=== PATIENT | female | born 1965 ===

== ENCOUNTER 2025-09-24 08:20 | Outpatient (AMB) | payer OTHER, SELFPAY ==
--- OUTSIDE RECORDS SUMMARY | 2025-07-07 03:00 | XMS_ITS ---
Author Organization [facility] Address [address] [place] [address] Care Team Providers Care Pulmonology Technician Name Role Phone JOSE ZAYAS Primary Care Provider [phone] ALLERGIES No Known Allergies REASON FOR VISIT CPX MEDICATIONS Medication SIG (Take, Route, Frequency, Duration) Notes Start Date End Date Status tiZANidine HCl 4 MG take 2 tablet by oral route at bedtime Oral taking as directed Active Topiramate 50 MG 1 tablet Orally Once a day for 90 day(s) 07/07/2025 Active SUMAtriptan Succinate 50 MG take 2 tablet by oral route once with fluids as early as possible after the onset of a migraine attack;may repeat after 2 hours if headache returns, not to exceed 200mgin 24hrs Oral as directed for 30 day(s) Active SEROquel 300 MG 1 tablet at bedtime Orally Once a day Active ALPRAZolam 0.5 MG take 1 tablet by ORAL route 3 times every day as needed Oral taking as directed Active Percocet 5-325 MG take 1 tablet by ORAL route every 12 hours as needed Oral taking as directed Active SEROquel 50 MG 1 tablet at bedtime Orally Once a day Active Omeprazole 20 MG 1 capsule 1/2 to 1 hour before morning meal Orally Once a day Active SOCIAL HISTORY Tobacco Use: Social History Observation Description Date Details (start date - stop date) Former Smoker NA - NA Sex Assigned At : Social History Observation Description Sex Assigned At Unknown Smoking Question Answer Notes Are you a: former smoker How long has it been since you last smoked? 5-10 years PROBLEMS Problem Type ICD Code Onset Dates Problem Status W/U Status Risk SNOMED Code Notes Problem Spinal stenosis of lumbar region without neurogenic claudication (M48.061) Active confirmed 42847884 Problem Gastroesophageal reflux disease without esophagitis (K21.9) Active confirmed 251589953 Problem Migraine syndrome (G43.909) Active confirmed 64176848 Problem Persistent depressive disorder (F34.1) Active confirmed 0170064851 VITAL SIGNS Height 65.50 in 07/07/2025 Weight 189 lbs 07/07/2025 Blood pressure systolic 114 mm Hg 07/07/20 25 Blood pressure diastolic 70 mm Hg 025 BMI 30.97 kg/m2 07/07/2025 Encounters Encounter Location Date Provider Diagnosis [facility] [address] [place] [address] 07/07/2025 [facility] Encounter for genera l adult medical examination with abnormal findings Z00.01 ; Spinal stenosis of lumbar region without neurogenic claudication M48.061 ; Gastroesophageal reflux disease without esophagitis K21.9 ; Migraine syndrome G43.909 ; Persistent depressive disorder F34.1 ; Other fatigue R53.83 and Encounter for immunization Z23 ASSESSMENTS Encounter Date Diagnosis Assessment Notes Treatment Notes Treatment Clinical Notes Section Notes 07/07/2025 Encounter for general adult medical examination with abnormal findings (ICD-10 - Z00.01) 1. Routine healthcare maintenance: Mammogram was done in November. Will send for colonoscopy report to guide when next due. She will contact [employer]. We will update fasting blood work. Flu shot given today 2. Lumbar spinal stenosis: Continues to follow closely with physiatry. 3. Gastroesophageal reflux: Stable with omeprazole 4. Migraines: With increased frequency we will double topiramate 50 mg and I will renew Imitrex 5. Depression: Following closely with psychiatry. 07/07/2025 Spinal stenosis of lumbar region without neurogenic claudication (ICD-10 - M48.061) 1. Routine healthcare maintenance: Mammogram was done in November. Will send for colonoscopy report to guide when next due. She will contact [employer]. We will update fasting blood work. Flu shot given today 2. Lumbar spinal stenosis: Continues to follow closely with physiatry. 3. Gastroesophageal reflux: Stable with omeprazole 4. Migraines: With increased frequency we will double topiramate 50 mg and I will renew Imitrex 5. Depression: Following closely with psychiatry. 07/07/2025 Gastroesophageal reflux disease without esophagitis (ICD-10 - K21.9) 1. Routine healthcare maintenance: Mammogram was done in November. Will send for colonoscopy report to guide when next due. She will contact [employer]. We will update fasting blood work. Flu shot given today 2. Lumbar spinal stenosis: Continues to follow closely with physiatry. 3. Gastroesophageal reflux: Stable with omeprazole 4. Migraines: With increased frequency we will double topiramate 50 mg and I will renew Imitrex 5. Depression: Following closely with psychiatry. 07/07/2025 Migraine syndrome (ICD-10 - G43.909) 1. Routine healthcare maintenance: Mammogram was done in November. Will send for colonoscopy report to guide when next due. She will contact [employer]. We will update fasting blood work. Flu shot given today 2. Lumbar spinal stenosis: Continues to follow closely with physiatry. 3. Gastroesophageal reflux: Stable with omeprazole 4. Migraines: With increased frequency we will double topiramate 50 mg and I will renew Imitrex 5. Depression: Following closely with psychiatry. 07/07/2025 Persistent depressive disorder (ICD-10 - F34.1) 1. Routine healthcare maintenance: Mammogram was done in November. Will send for colonoscopy report to guide when next due. She will contact [employer]. We will update fasting blood work. Flu shot given today 2. Lumbar spinal stenosis: Continues to follow closely with physiatry. 3. Gastroesophageal reflux: Stable with omeprazole 4. Migraines: With increased frequency we will double topiramate 50 mg and I will renew Imitrex 5. Depression: Following closely with psychiatry. 07/07/2025 Other fatigue (ICD-10 - R53.83) 1. Routine healthcare maintenance: Mammogram was done in November. Will send for colonoscopy report to guide when next due. She will contact [employer]. We will update fasting blood work. Flu shot given today 2. Lumbar spinal stenosis: Continues to follow closely with physiatry. 3. Gastroesophageal reflux: Stable with omeprazole 4. Migraines: With increased frequency we will double topiramate 50 mg and I will renew Imitrex 5. Depression: Following closely with psychiatry. 07/07/2025 Encounter for immunization (ICD-10 - Z23) VIS sheet provided to patient influenza vaccine administered patient counseled 1. Routine healthcare maintenance: Mammogram was done in November. Will send for colonoscopy report to guide when next due. She will contact [employer]. We will update fasting blood work. Flu shot given today 2. Lumbar spinal stenosis: Continues to follow closely with physiatry. 3. Gastroesophageal reflux: Stable with omeprazole 4. Migraines: With increased frequency we will double topiramate 50 mg and I will renew Imitrex 5. Depression: Following closely with psychiatry. PLAN OF TREATMENT Medication Medication Name Sig Start Date Stop Date Notes tiZANidine HCl 4 MG take 2 tablet by ora l route at bedtime Oral taking as directed Topiramate 25 MG take 1 tablet by ORA L route bid Oral taking as directed Topiramate 50 MG 1 tablet Orally Once a day for 90 day(s) 07/07/2025 SUMAtriptan Succinate 50 MG take 2 tablet by oral route once with fluids as early as possible after the onset of a migraine attack;may repeat after 2 hours if headache returns, not to exceed 200mgin 24hrs Oral as directed for 30 day(s) SEROquel 300 MG 1 tablet at bedtime Orally Once a day ALPRAZolam 0.5 MG take 1 tablet by ORA L route 3 times every day as needed Oral taking as directed SEROquel 50 MG 1 tablet at bedtime Orally Once a day Omeprazole 20 MG 1 capsule 1/2 to 1 hour before morning meal Orally Once a day Treatment Notes Assessment Notes Encounter for immunization VIS sheet pro vided to patient influenza vaccine administered patient counseled Progress Notes * Examination Category Sub-Category Detail Notes Category Not es General Examination HEENT: PERRLA, EOMI bilatera lly, nose clear Neck: supple, no lymphaden opathy, no thyromegaly Heart: RSR, normal S1S2 Lungs: clear to auscultatio n Abdomen: soft, non tender/non distended, no rebound tenderness, no guarding or rigidity Extremities: no edema General Appearance no apparent distress , pleasant Skin: normal, no rash Neuro alert and oriented x 3, gait normal Oral cavity: no lesions Peripheral pulses: Bilateral radial pre sent, Bilateral posterior tibial present, BilateralCarotids present No Bruits Back: no CVA tenderness, s traight leg raise normal, , no spinal tenderness Lymphatics No nodes in neck Psych: oriented X 3, affect normal History and Physical Notes * HPI (History of Present Illness) Category Sub-Category Detail Notes Category Not es Depression Screening PHQ-2 (2015 Edition) Little interest or pleasure in doing things?: Not at all Feeling down, depressed, or hopeless?: N ot at all Total Score: 0
--- OUTSIDE RECORDS SUMMARY | 2025-07-07 03:08 | XMS_ITS ---
Author Organization [facility] Address [address] [place] [address] Care Team Providers Care Physician Assistant Surgery Name Role Phone JOSE ZAYAS Primary Care Provider REASON FOR VISIT [place] Encounters Encounter Location Date Provider Diagnosis [facility] [address] [place] [address] 07/07/2025 JOSE ZAYAS PLAN OF TREATMENT No Information
--- OUTSIDE RECORDS SUMMARY | 2025-07-07 08:41 | XMS_ITS ---
Author Organization [facility] Address [address] [place] [address] Care Team Providers Care Photogrammetric Compilation Specialist Name Role Phone JOSE ZAYAS Primary Care Provider REASON FOR VISIT employer cpx form Encounters Encounter Location Date Provider Diagnosis [facility] [address] [place] [address] 07/07/2025 JOSE ZAYAS PLAN OF TREATMENT No Information
--- OUTSIDE RECORDS SUMMARY | 2025-07-08 01:19 | XMS_ITS ---
Author Organization [facility] Address [address] [place] [address] Care Team Providers Care Children'S Service Supervisor Name Role Phone JOSE ZAYAS Primary Care Provider REASON FOR VISIT add on Encounters Encounter Location Date Provider Diagnosis [facility] [address] [place] [address] 07/08/2025 JOSE ZAYAS Hyperglycemia R73.9 ASSESSMENTS Encounter Date Diagnosis Assessment Notes Treatment Notes Treatment Clinical Notes Section Notes 07/08/2025 Hyperglycemia (ICD-10 - R73.9) PLAN OF TREATMENT Future Test Test Name Order Date Hemoglobin [id number] 07/08/2025
--- OUTSIDE RECORDS SUMMARY | 2025-07-09 15:55 | XMS_ITS ---
Author Organization [facility] Address [address] [place] [address] Care Team Providers Care Customer Sales Specialist Name Role Phone JOSE ZAYAS Primary Care Provider REASON FOR VISIT labs Encounters Encounter Location Date Provider Diagnosis [facility] [address] [place] [address] 07/09/2025 JOSE ZAYAS PLAN OF TREATMENT No Information
--- OUTSIDE RECORDS SUMMARY | 2025-07-10 05:10 | XMS_ITS ---
Author Organization [facility] Address [address] [place] [address] Care Team Providers Care Tie Layer Name Role Phone JOSE ZAYAS Primary Care Provider [phone] REASON FOR VISIT inquiring about Zepbound MEDICATIONS Medication SIG (Take, Route, Fr equency, Duration) Notes Start Date End Date Status Zepbound 2.5 MG/0.5ML as directed Subcut aneous every 7 days for 28 days 07/10/2025 Active PROBLEMS Problem Type ICD Code Onset Dates Problem Status W/U Status Risk SNOMED Code Notes Problem Other obesity due to excess calories (E66.09) Active confirmed 835080335 Problem Body mass index [BMI] 30.0-30.9, adult (Z68.30) Active confirmed 274966184 Problem Obesity, class 1 (E66.811) Active confirmed 932604863 Encounters Encounter Location Date Provider Diagnosis [facility] [address] [place] [address] 07/10/2025 JOSE ZAYAS Other obesity due to excess calories E66.09 ; Body mass index [BMI] 30.0-30.9, adult Z68.30 and Obesity, class 1 E66.811 ASSESSMENTS Encounter Date Diagnosis Assessment Notes Treatment Notes Treatment Clinical Notes Section Notes 07/10/2025 Other obesity due to excess calories (ICD-10 - E66.09) 07/10/2025 Body mass index [BMI] 30.0-30.9, adult (ICD-10 - Z68.30) 07/10/2025 Obesity, class 1 (ICD-10 - E66.811) PLAN OF TREATMENT Medication Medication Name Sig Start Date Stop Date Notes Zepbound 2.5 MG/0.5ML as directed Subcut aneous every 7 days for 28 days 07/10/2025
--- OUTSIDE RECORDS SUMMARY | 2025-07-10 07:46 | XMS_ITS ---
Author Organization [facility] Address [address] [place] [address] Care Team Providers Care Rewards Consultant Name Role Phone JOSE ZAYAS Primary Care Provider REASON FOR VISIT Zepbound Encounters Encounter Location Date Provider Diagnosis [facility] [address] [place] [address] 07/10/2025 JOSE ZAYAS PLAN OF TREATMENT No Information
--- OUTSIDE RECORDS SUMMARY | 2025-08-12 11:34 | XMS_ITS ---
Author Organization [facility] Address [address] [place] [address] Care Team Providers Care [employer] Supervisor Name Role Phone JOSE ZAYAS Primary Care Provider REASON FOR VISIT (W,AF-08/12/25) PA Zepbound Encounters Encounter Location Date Provider Diagnosis [facility] [address] [place] [address] 08/12/2025 JOSE ZAYAS PLAN OF TREATMENT No Information
--- NOTE | 2025-09-24 08:19 | A.PHYSOV ---
Vital Signs 09/24/25 08:30 Height 5 ft 6 in Weight 179 lb BMI 28.9 Intake Visit Reasons: 3M Intake Note: Patient is a 60 year old female in office today in office today for her 3 month medication management visit. Sign Poster Required: No Allergies No Known Allergies Allergy (Verified 09/24/25 08:20) HPI Comments Details: History of Present Illness The patient is a 60 year old female presenting for a follow-up visit for chronic pain management and evaluation of an acute injury. She has chronic pain, primarily in her lower back, and is on a contract for oxycodone, which she uses sparingly for severe pain. She also takes methocarbamol and cyclobenzaprine interchangeably for muscle spasms. Lately methocarbamol has been primarily utilized. 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 Past interventions include multiple lumbar injections, most recently an L4-L5 interlaminar procedure and prior bilateral L4 transforaminal procedures. She has also had good results with greater occipital nerve blocks for headaches. A trial of turmeric supplementation was not helpful. She continues to exercise daily. On Sunday, September 21, 2025, the patient fell down her cellar stairs after slipping on wet steps, landing on her tailbone and left side. This resulted in acute pain in that area. She has not had an X-ray since the fall. Pain Description - Chronic Pain: Located in the lower back, with a reported 60-70% improvement with current medications. - Acute Pain: Localized pain in the tailbone and left buttock area following a fall. - Associated Symptoms: The patient reports she is doing a lot of shifting due to the acute pain, but denies any pain radiating down her leg. Results - Procedures: Patient reports good reaction to prior greater occipital nerve blocks for headaches. - Procedures: History of multiple lumbar injections, with the most recent being an L4-L5 interlaminar procedure and prior bilateral L4 transforaminal procedures. [facility] Medical History (Updated 09/24/25 @ 08:38 by Bartolo Sanders DO) Low back pain Sacroiliac inflammation Sacroiliac dysfunction Surgical History H/O tubal ligation (Unknown) History of knee replacement (Unknown) Social History Household Members: Spouse Alcohol intake: current Alcohol intake frequency: does not drink Patient Tobacco Use Status: Former Tobacco user Current occupational status: employed Review of Systems Narrative Review of Systems - Constitutional: Denies fever or chills. - Musculoskeletal: Reports localized pain in the left tailbone area after a fall. - Neurological: Denies radicular pain shooting down the leg. Physical Exam Exam Exam: Physical Exam - Back: Palpation reveals tenderness over the left sacrum/coccyx region. - Back: No tenderness noted with palpation on the right. Neurological examination was nonfocal. Lumbar extension was restricted. Left SI provocative maneuvers were positive including fabere, Martha and SI compression test. No pain with internal and external rotation of the either hip. Patient demonstrated no upper motor neuron signs. Vital Signs: BMI result Body Mass Index 28.9 Assessment & Plan Assessment & Plan (1) Sacroiliac dysfunction: Code(s): M53.3 - Sacrococcygeal disorders, not elsewhere classified Category: Medical (2) Sacroiliac inflammation: Code(s): M46.1 - Sacroiliitis, not elsewhere classified Category: Medical (3) Low back pain: Code(s): M54.50 - Low back pain, unspecified Category: Medical (4) Low back pain: Code(s): M54.50 - Low back pain, unspecified Category: Medical Plan Pain Management - Analgesia: Medications provide 60-70% reduction in chronic pain. 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 - Aberrant Drug Related Behaviors: The patient is on a contract for oxycodone and reports taking it sparingly as needed for severe pain only. Plan Patient was informed and verbally consented to the use of an ambient scribe for clinic note documentation during this visit. 1. Acute Pain Due To Fall The patient experienced a fall resulting in acute pain in the tailbone area, with tenderness on examination. There is a possibility of a severe bruise or a sacral insufficiency fracture. An X-ray of the pelvis and low back will be ordered to assess for a visible fracture. If the pain does not improve in 4 to 6 weeks, an MRI will be the next step. A prednisone taper was offered for inflammation, but the patient declined. 2. Chronic Low Back Pain The patient will continue her current medication regimen for chronic pain, which includes oxycodone taken sparingly, methocarbamol, and cyclobenzaprine. Medication refills will be provided as needed. Discussion Notes I discussed with the patient that her new pain is from her fall and could be a severe bruise or a sacral insufficiency fracture, which is typically non-operative but can be painful for 4-6 weeks. I recommended an X-ray of her pelvis and low back to evaluate for a fracture and explained that an MRI would be the next step if her symptoms do not improve. I offered a prednisone taper to reduce inflammation, which she declined. I provided a prescription for the X-ray that she can take to a facility of her choosing. Patient Instructions - Please get an X-ray of your pelvis and low back in the next couple of days to check for a fracture from your recent fall. - If your new pain from the fall does not get better in 4 to 6 weeks, we will need to consider getting an MRI for a closer look. - Continue taking your current pain medications as prescribed. Orders: Orders XR pelvis 1-2V Today M46.1 - Sacroiliitis, not elsewhere classified, M53.3 - Sacrococcygeal disorders, not elsewhere classified, M54.50 - Low back pain, unspecified XR lumbar spine 4V min Today M46.1 - Sacroiliitis, not elsewhere classified, M53.3 - Sacrococcygeal disorders, not elsewhere classified, M54.50 - Low back pain, unspecified Medications: New oxycodone-acetaminophen 5-325 mg Partial fill upon request 1 tab PO BID PRN 56 tabs 0RF pain 28 days M54.50 - Low back pain, unspecified Coding Level of Care Code Est Pt Level 4 (31813) Complex visit Add On G2211 Diagnoses Sacroiliac dysfunction M53.3 Sacroiliac inflammation M46.1 Low back pain M54.50
[2025-09-24 08:30] VITALS: BMI 28.9
--- OUTSIDE RECORDS SUMMARY | 2025-09-24 08:37 | XMS_ITS | Clinical Summary ---
Author Organization [address] Address [address] [place] [phone] Phone Care Team Providers Care Health Information Specialist Name Role Phone Umesh Regan MD Primary Care Provider [phone] Surgical History Surgery Date Site/Laterality Comments TUBAL LIGATION PROCEDURE: HISTORICAL TUBAL LIGATION KNEE SURGERY PROCEDURE: HISTORICAL KNEE SURGERY Medical History Medical History Date Comments Herniated disc, cervical DX:Jeni iated disc, cervical Lumbar herniated disc DX:Lumbar herniated disc Family History Medical History Relation Name Comments Colon cancer Aunt maternal Other cancer Brother 1 testicular Other cancer Father cancer in jaw b one Cervical cancer Mother CIS, had hys t Diabetes Mother Melanoma Mother Ovarian cancer Mother uncertain, ma y have been benign, no chemotherapy Breast cancer Neg Hx Pancreatic cancer Neg Hx Prostate cancer Neg Hx Uterine cancer Neg Hx Relation Name Status Comments Aunt maternal Brother 1 Brother 2 Alive Father Mother Social History Tobacco Use Types Packs/Day Years Used Date Smoking Tobacco: Former Cigarettes 1.5 22.7 0 10/22/1991 - 06/19/2014 Smokeless Tobacco: Never Alcohol Use Standard Drinks/Week Comments No 0 (1 standard drink = 0.6 oz pur e alcohol) Comments Unknown Sex and Gender Information Value Date Recorded Sex Assigned at Not on file Legal Sex Female 6:08 PM EST Gender Identity Not on file Sexual Orientation Not on file Obstetrics History Para Term AB IAB SAB Ectopic Multiple Livin g Live Births 2 2 2 2 Date Outcome GA Total Labor Labor/2nd/3rd Weight Sex Type Anes PTL Treva A1 A5 Name Clin Term Term Plan of Treatment Health Maintenance Due Date Last Done Comments Colorectal Cancer Screening: Colonoscopy 1966 DTaP,Tdap,and Td Vaccines (1 - Tdap) 1985 Hepatitis B Vaccines (1 of 3 - 19+ 3-dose series) 1985 Pneumococcal Vaccine: 50+ Years (1 of 1 - PCV) 2016 Cervical Cancer Screening: Pap Smear 02/11/2022 02/11/2019 HIV Screening 09/30/2022 Hepatitis C Screening 09/30/2022 Lung Cancer Screening (Low Dose CT) 09/30/2022 Social Influencers of Health Screening 09/30/2022 Depression Screening 10/22/2024 COVID-19 Vaccine ( season) 2025 08/09/2022, 11/22/2021, 01/20/2021, Additional history exists Influenza Vaccine (#1) 2025 4, 09/21/2022, 08/15/2021, Additional history exists Breast Cancer Screening 12/16/2026 12/16/19, 08/09/2023, 08/03/2022, Additional history exists RSV Immunization Adult Patients (1 - 1-dose 75+ series) 2041 Zoster Vaccines Completed 02/08/2022, 10/07/2021 HIB Vaccines Aged Out No longer eligi ble based on patient's age to complete this topic HPV Vaccines Aged Out No longer eligi ble based on patient's age to complete this topic Hepatitis A Vaccines Aged Out No long er eligible based on patient's age to complete this topic IPV Vaccines Aged Out No longer eligi ble based on patient's age to complete this topic MMR Vaccines Aged Out No longer eligi ble based on patient's age to complete this topic Meningococcal ACWY Vaccine Aged Out N o longer eligible based on patient's age to complete this topic Meningococcal B Vaccine Aged Out No l onger eligible based on patient's age to complete this topic RSV Immunization Patients Under 20 months Aged Out No longer eligible based on patient's age to complete this topic Varicella Vaccines Aged Out No longer eligible based on patient's age to complete this topic Procedures Procedure Name Priority Date/Time Associated Diagnosis Comments MG MAMMO DIGITAL SCREENING W AG BILAT Routine 12/16/2024 4:31 PM EST Encounter for screening mammogram for malignant neoplasm of breast PAP SMEAR Routine 02/11/2019 from Last 3 Months or Most Recently Relevant to Health Maintenance Results * MG Mammo Digital Screening w Ag bilat (12/16/2024 4:31 PM EST) Anatomical Region Laterality Modality Breast Bilateral Mammography 12/17/2024 2:40 PM EST Impressions 12/17/2024 2:45 PM EST BILATERAL BREASTS: Negative, no evidence of malignancy. Normal interval follow- up is recommended in 12 months. BREAST DENSITY: C - The breasts are heterogeneously dense which may obscure small masses. BI-RADS CATEGORY: 1 - NEGATIVE RECOMMENDATION: Screening bilateral mammogram is recommended in 1 year. Mammo Location: [facility], [address] [place] [address], [id number], . -------- FINAL REPORT -------- Dictated By: Luis Enrique Henning Dictated Date: 12/17/2024 14:40 ET Assigned Physician: Luis Enrique Henning Reviewed and Electronically Signed By: Luis Enrique Henning Signed Date: 12/17/2024 14:45 ET Workstation ID: [id number] Transcribed By: Self Edit Transcribed Date: 12/17/2024 14:42 ET Narrative 12/17/2024 2:45 PM EST STUDY: Bilateral screening mammography with tomosynthesis and CAD TECHNIQUE: Bilateral full-field digital screening mammography is obtained and read in conjunction with computer-aided detection. Tomosynthesis as well as 2-D C view imaging were obtained. COMPARISON: Comparison made to multiple prior, most recent August 09, 2023, and most remote February 04, 2015. BILATERAL BREASTS: No significant masses, suspicious calcifications or other abnormalities are seen in either breast. Procedure Note Luis Enrique Henning MD - 12/17/2024 STUDY: Bilateral screening mammography with tomosynthesis and CAD TECHNIQUE: Bilateral full-field digital screening mammography is obtainedand read in conjunction with computer-aided detection. Tomosynthesis aswell as 2-D C view imaging were obtained. COMPARISON: Comparison made to multiple prior, most recent July, and most remote February 04, 2015. BILATERAL BREASTS: No significant masses, suspicious calcifications orother abnormalities are seen in either breast. IMPRESSION: BILATERAL BREASTS: Negative, no evidence of malignancy. Normal intervalfollow-up is recommended in 12 months. BREAST DENSITY: C - The breasts are heterogeneously dense which mayobscure small masses. BI-RADS CATEGORY: 1 - NEGATIVE RECOMMENDATION: Screening bilateral mammogram is recommended in 1 year. Mammo Location: [facility], [address] [place] [address], [id number], . -------- FINAL REPORT -------- Dictated By: Luis Enrique Henning Dictated Date: 12/17/2024 14:40 ET Assigned Physician: Luis Enrique Henning Reviewed and Electronically Signed By: Luis Enrique Henning Signed Date: 12/17/2024 14:45 ET Workstation ID: [id number] Transcribed By: Self Edit Transcribed Date: 12/17/2024 14:42 ET Umesh Regan MD IMG BI PROCEDURES Final Result * Pap smear (02/11/2019) 02/11/2019 Narrative HISTORICAL TESTING LAB RESULTING AGENCY - 02/14/2019 2:06 PM EDT [id number] THINPREP PAP, IMAGED: NEGATIVE FOR SQUAMOUS INTRAEPITHELIAL LESION AND MALIGNANCY . ATROPHY. DALTON LO , JACINTO(ASCP) (CASE ELECTRONICALLY SIGNED 02 14 2019) RESULT OF APTIMA HIGH RISK HPV ASSAY: HIGH RISK HPV: NEGATIVE (SEROTYPES 16,18,31,33,35,39,45,51,52,56,58,59,66,68) COMPLETED ON 2019-02-13 ADEQUACY: SATISFACTORY ENDOCERVICAL/TRANSFORMATION ZONE COMPONENT PRESENT. SOURCE: THINPREP PAP HPV ANY DX: REFLEX 16 AND 18, CERVICAL, IMAGED CLINICAL INFORMATION: HPV ANY DIAGNOSIS. Z12.4, MENOPAUSE, PAP HX NEGATIVE us Marisela Rodriguez MD LAB CYTOLOGY ORDERABLES Fin al Result HISTORICAL TESTING LAB RESULTING AGENCY from Last 3 Months or Most Recently Relevant to Health Maintenance Insurance [facility] Care Teams Health Information Specialist Relationship Specialty Start Date End Date Umesh Regan MD PCP - General 05/15/01
--- OUTSIDE RECORDS SUMMARY | 2025-09-24 08:38 | XMS_ITS ---
Author Name [facility] Organization Unknown Care Team Organization Name Specialty Phone Email Start Date End golden [facility] Primary Care 03/24/2024
--- OUTSIDE RECORDS SUMMARY | 2025-09-24 08:38 | XMS_ITS | Patient Health Record ---
Author Organization [facility] Address [address] [place] [address] Care Team Providers Care Immunology Specialist Name Role Phone CHANAJOSE Primary Care Provider [phone] ALLERGIES No Known Allergies REASON FOR REFERRAL No Information MEDICATIONS Medication SIG (Take, Route, Frequency, Duration) Notes Start Date End Date Status SEROquel 300 MG 1 tablet at bedtime Orally Once a day Active tiZANidine HCl 4 MG take 2 tablet by ora l route at bedtime Oral taking as directed Active Zepbound 2.5 MG/0.5ML as directed Subcutaneous every 7 days for 28 days 07/10/2025 Active ALPRAZolam 0.5 MG take 1 tablet by ORA L route 3 times every day as needed Oral taking as directed Active Topiramate 50 MG 1 tablet Orally Once a day for 90 day(s) 07/07/2025 Active Percocet 5-325 MG take 1 tablet by ORA L route every 12 hours as needed Oral taking as directed Active SEROquel 50 MG 1 tablet at bedtime Orally Once a day Active Omeprazole 20 MG 1 capsule 1/2 to 1 hour before morning meal Orally Once a day Active SUMAtriptan Succinate 50 MG take 2 tablet by oral route once with fluids as early as possible after the onset of a migraine attack;may repeat after 2 hours if headache returns, not to exceed 200mgin 24hrs Oral as directed for 30 day(s) Active IMMUNIZATIONS Vaccine Route Administration Date Status Comme nts Td (Tetanus Diphtheria) Unknown 06/03/2003 Administered Td (Tetanus Diphtheria) IM Intramuscular 12/11/2018 Admini stered Pfizer COVID-19,mRNA, LNP-S, PF, 30mcg/0.3mL dose Unknown 01/13/2021 Administered Pfizer COVID-19,mRNA, LNP-S, PF, 30mcg/0.3mL dose Unknown 02/03/2021 Administered SOCIAL HISTORY Tobacco Use: Social History Observation [...] due to excess calories (E66.09) Active confirmed 821390869 Problem Gastroesophageal reflux disease without esophagitis (K21.9) Active confirmed 295448803 Problem Spinal stenosis of lumbar region without neurogenic claudication (M48.061) Active confirmed 74455902 Problem Body mass index [BMI] 30.0-30.9, adult (Z68.30) Active confirmed 873499192 Problem Persistent depressive disorder (F34.1) Active confirmed 9418859264 Problem Migraine syndrome (G43.909) Active confirmed 06276640 Problem Obesity, class 1 (E66.811) Active confirmed 391358503 VITAL SIGNS Blood pressure diastolic 70 mm Hg 07/07/2025 Height 65.50 in 07/07/2025 Blood pressure systolic 114 mm Hg 07/07/2025 Weight 189 lbs 07/07/2025 BMI 30.97 kg/m2 07/07/2025 Encounters Encounter Location Date Provider Diagnosis [address] [address] 07/06/2025 [place] [id number] 07/07/2025 [facility] Encounter for genera l adult medical examination with abnormal findings Z00.01 ; Spinal stenosis of lumbar region without neurogenic claudication M48.061 ; Gastroesophageal reflux disease without esophagitis K21.9 ; Migraine syndrome G43.909 ; Persistent depressive disorder F34.1 ; Other fatigue R53.83 and Encounter for immunization Z23 [address] [address] 07/07/2025 [place] [id number] 07/07/2025 [facility] Encounter for genera l adult medical examination with abnormal findings Z00.[address] [phone] 07/07/[address] [address] 07/08/2025 [facility] Hyperglycemia R73.[address] [address] 07/09/[address] [address] 07/10/2025 [facility] Other obesity due to excess calories E66.09 ; Body mass index [BMI] 30.0-30.9, adult Z68.30 and Obesity, class [address] [address] 07/10/[address] [address] 07/12/[address] [address] 08/12/2025 [facility] ASSESSMENTS Encounter Date Diagnosis Assessment Notes Treatment Notes Treatment Clinical Notes Section Notes 07/10/2025 Other obesity due to excess calories (ICD-10 - E66.09) 07/08/2025 Hyperglycemia (ICD-10 - R73.9) 07/07/2025 Encounter for general adult medical examination with abnormal findings (ICD-10 - Z00.01) 07/07/2025 Spinal stenosis of lumbar region without neurogenic claudication (ICD-10 - M48.061) 1. Routine healthcare maintenance: Mammogram was done in November. Will send for colonoscopy report to guide when next due. She will contact [employer]GER. We will update fasting blood work. Flu shot given today 2. Lumbar spinal stenosis: Continues to follow closely with physiatry. 3. Gastroesophageal reflux: Stable with omeprazole 4. Migraines: With increased frequency we will double topiramate 50 mg and I will renew Imitrex 5. Depression: Following closely with psychiatry. 07/07/2025 Encounter for general adult medical examination with abnormal findings (ICD-10 - Z00.01) 1. Routine healthcare maintenance: Mammogram was done in November. Will send for colonoscopy report to guide when next due. She will contact NETWORK PROGRAM MANAGER. We will update fasting blood work. Flu [...] guide when next due. She will contact NETWORK PROGRAM MANAGER. We will update fasting blood work. Flu shot given today 2. Lumbar spinal stenosis: Continues to follow closely with physiatry. 3. Gastroesophageal reflux: Stable with omeprazole 4. Migraines: With increased frequency we will double topiramate 50 mg and I will renew Imitrex 5. Depression: Following closely with psychiatry. 07/10/2025 Body mass index [BMI] 30.0-30.9, adult (ICD-10 - Z68.30) 07/07/2025 Migraine syndrome (ICD-10 - G43.909) 1. Routine healthcare maintenance: Mammogram was done in November. Will send for colonoscopy report to guide when next due. She will contact [employer]WORK PROGRAM MANAGER. We will update fasting blood work. Flu shot given today 2. Lumbar spinal stenosis: Continues to follow closely with physiatry. 3. Gastroesophageal reflux: Stable with omeprazole 4. Migraines: With increased frequency we will double topiramate 50 mg and I will renew Imitrex 5. Depression: Following closely with psychiatry. 07/10/2025 Obesity, class 1 (ICD-10 - E66.811) 07/07/2025 Persistent depressive disorder (ICD-10 - F34.1) 1. Routine healthcare maintenance: Mammogram was done in November. Will send for colonoscopy report to guide when next due. She will contact NETWORK PROGRAM MANAGER. We will update fasting blood work. Flu [...] guide when next due. She will contact NETWORK PROGRAM MANAGER. We will update fasting blood work. Flu [...] guide when next due. She will contact NETWORK PROGRAM MANAGER. We will update fasting blood work. Flu shot given today 2. Lumbar spinal stenosis: Continues to follow closely with physiatry. 3. Gastroesophageal reflux: Stable with omeprazole 4. Migraines: With increased frequency we will double topiramate 50 mg and I will renew Imitrex 5. Depression: Following closely with psychiatry. PLAN OF TREATMENT Future Test Test Name Order Date Hemoglobin [id number] 07/08/2025 Insurance Providers Payer Name Payer Address Payer Phone Subscriber Number Group Number Insured Name Patient Relationship to Insured Coverage Start Date Coverage End Date [employer] [address] [place] H[place]KINS [phone] [id number] WESTLEY BRUCE Self - patient is the insured MEDICAL (GENERAL) HISTORY Medical History History ICD Code Disease : Cervical DDD, Disease : IBS, Disease : Lumbar DDD, Disease : migraines, Problems: Gastroesophageal r eflux disease, Added Date: 07/11/2015, Onset Date: 10/21/2009:Active Problems: Malaise and fatigu e, Added Date: 07/11/2015, Onset Date: 10/21/2009:Active Problems: Migraine without a ura, Added Date: 07/11/2015, Onset Date: 10/21/2009:Active Problems: Spinal stenosis of lumbar region, Added Date: 07/11/2015, Onset Date: 10/21/2009:Active Surgical History Surgery Date(Month/Year)
== END 2025-09-24 08:41 | disposition home or self-care (01) ==
LOC: HO.HPHYS 08:20
PROVIDERS: Visit Provider Physical Medicine & Rehabilitation
DX: M53.3 Sacrococcygeal disorders, not elsewhere classified (principal); M46.1 Sacroiliitis, not elsewhere classified; M54.50 Low back pain, unspecified
CPT/HCPCS: 99214